=== PATIENT | female | born 1955 | race Caucasian/White ===

== ENCOUNTER 2019-02-04 19:41 | Emergency (ER) | payer BC ==
[~2019-02-04] VITALS: Ht 154.9 cm; Wt 90.9 kg
[~2019-02-04 19:41] MED LIST: BENICAR HCT 12.1 TAB PO; FIORICET 325 MG1 TA1 PO; GLUCOPHAGE500 MG/TAB PO; NORCO 325 MG-51 TAB PO; PULMICORT90 MCG/Act IH; SINGULAIR 110 MG/TAB PO; TUSS PO; VENTOLIN0.09 MG IH
[2019-02-04 19:49] VITALS: BP 143/67; TEMP 98.1
[2019-02-04] MEDS ORDERED: HCTZ 25MG TAB25 MG PO (19:52)
[2019-02-04] MEDS ORDERED: TENORMIN 2525 MG/TAB PO (19:52)
[2019-02-04] MEDS ORDERED: NORCO 325 MG-51 TAB PO (20:52)
[2019-02-04 21:14] VITALS: PULSE 79
== END 2019-02-04 21:15 | disposition home or self-care (01) ==
LOC: COL.ER 19:41
DX: S46.912A Strain of unspecified muscle, fascia and tendon at shoulder and upper arm level, left arm, initial encounter (principal); E11.9 Type 2 diabetes mellitus without complications; X50.0XXA Overexertion from strenuous movement or load, initial encounter; Y92.009 Unspecified place in unspecified non-institutional (private) residence as the place of occurrence of the external cause
CPT/HCPCS: J1170